=== PATIENT | male | born 1940 | race Caucasian/White ===

== ENCOUNTER 2017-01-30 11:22 | Outpatient (CLI) | payer MEDICARE, OTHER ==
[2017-01-30 19:35] LABS: BASOPHILS % (AUTO) 0.5 %; EOSINOPHILS # (AUTO) 0.1 10^3/uL (0.0-0.7); EOSINOPHILS % (AUTO) 1.3 %; LYMPHOCYTES # (AUTO) 2.6 10^3/uL (1.5-3.5); LYMPHOCYTES % (AUTO) 37.9 %; MEAN CORPUSCULAR HEMOGLOBIN 32.5 pg (27.0-31.0); MEAN CORPUSCULAR HGB CONC 33.3 g/dL (32.0-36.0); MEAN CORPUSCULAR VOLUME 97.7 fL (80.0-94.0); MEAN PLATELET VOLUME 9.8 fL (7.4-11.4); MONOCYTES # (AUTO) 0.5 10^3/uL (0.0-1.0); MONOCYTES % (AUTO) 6.5 %; NEUTROPHILS # (AUTO) 3.7 10^3/uL (1.5-6.6); NEUTROPHILS % (AUTO) 53.8 %; NUCLEATED RED BLOOD CELLS AUTO 0.1 /100WBC; RED CELL DISTRIBUTION WIDTH 13.2 % (12.0-15.0); UNCORRECTED WHITE BLOOD COUNT 6.9 x10^3/uL; WHITE BLOOD COUNT 6.9 x10^3/uL (4.8-10.8)
[2017-01-30 19:38] LABS: ALBUMIN/GLOBULIN RATIO 1.6 (1.0-2.2); BUN - BLOOD UREA NITROGEN 16 mg/dL (6-20); CALCIUM 9.2 mg/dL (8.5-10.3); CARBON DIOXIDE - CO2 28 mmol/L (21-32); CHLORIDE 103 mmol/L (101-111); GFR - MDRD 72 (>89); GLUCOSE 104 mg/dL (70-100); POTASSIUM 4.2 mmol/L (3.5-5.0); SODIUM 137 mmol/L (135-145); TOTAL PROTEIN 7.2 g/dL (6.7-8.2)
== END 2017-01-30 11:23 | disposition home or self-care (01) ==
LOC: LAB.WCP 11:22
PROVIDERS: ATTEND Psychiatry & Neurology Neurology
DX: E55.9 Vitamin D deficiency, unspecified (principal); G20 Parkinson's disease; T88.7XXA Unspecified adverse effect of drug or medicament, initial encounter
CPT/HCPCS: 36415; 80053; 85025

== ENCOUNTER 2017-02-12 13:20 | Outpatient (CLI) | payer MEDICARE, OTHER ==
[2017-02-12 13:29] LABS: CHOL/HDL RATIO 6.8 (<5.0); CHOLESTEROL 217 mg/dL; HDL CHOLESTEROL 32 mg/dL; LDL/HDL RATIO 3.7 (<3.6); TRIGLYCERIDES 338 mg/dL; VLDL CHOLESTEROL 68 mg/dL
== END 2017-02-12 13:21 | disposition home or self-care (01) ==
LOC: LAB.WCP 13:20
PROVIDERS: ATTEND Family Medicine
DX: E78.5 Hyperlipidemia, unspecified (principal); Z12.5 Encounter for screening for malignant neoplasm of prostate
CPT/HCPCS: 36415; 80061; G0103; 84153

== ENCOUNTER 2017-02-15 11:08 | Outpatient (CLI) | payer MEDICARE, OTHER ==
--- NOTE | 2017-02-15 18:01 | Ultrasound Report ---
EXAM: CAROTID DOPPLER ULTRASOUND EXAM DATE: 02/15/2017 12:32 p.m. CLINICAL HISTORY: Carotid artery stenosis, bilateral. COMPARISON: None. TECHNIQUE: Real-time sonographic vascular imaging was performed by the packing room worker through the caroti d arterial system with a linear transducer utilizing color-flow, Doppler flow and spectral analysis. Multiple sales representative public utilities static images were saved for review. FINDINGS: Right: There is mild plaquing in the right carotid bifurcation, without evidence of a focal hemodynam ically significant stenosis. Left: There is moderate calcified plaquing in the left carotid bifurcation, without evidence of a foc al hemodynamically significant stenosis. The vertebral arteries demonstrate antegrade flow bilaterally. RIGHT: RCCA Prox: PSV 85 cm/sec. RCCA Dist: PSV 67 cm/sec, EDV 15 cm/sec. RECA: PSV 100 cm/sec. R Bulb: PSV 47 cm/sec, EDV 11 cm/sec, ICA/CCA ratio 0.73, degree of stenosis <50%, plaque estimate <5 0%. ALEJANDRA Prox: PSV 81 cm/sec, EDV 18 cm/sec, ICA/CCA ratio 1.2, degree of stenosis <50%, plaque estimate <50%. ALEJANDRA Mid: PSV 48 cm/sec, EDV 17 cm/sec, ICA/CCA ratio 0.72, degree of stenosis <50%, plaque estimate <50%. ALEJANDRA Dist: PSV 81 cm/sec, EDV 27 cm/sec, ICA/CCA ratio 1.21, degree of stenosis <50%, plaque estimat e <50%. RVA: PSV 33 cm/sec. LEFT: LCCA Prox: PSV 113 cm/sec. LCCA Dist: PSV 87 cm/sec, EDV 24 cm/sec. LECA: PSV 103 cm/sec. L Bulb: PSV 54 cm/sec, EDV 13 cm/sec, ICA/CCA ratio 0.62, degree of stenosis <50%, plaque estimate <5 0%. LICA Prox: PSV 50 cm/sec, EDV 18 cm/sec, ICA/CCA ratio 0.57, degree of stenosis <50%, plaque estimate <50%. LICA Mid: PSV 127 cm/sec, EDV 44 cm/sec, ICA/CCA ratio 1.46, degree of stenosis <50%, plaque estimate <50%. LICA Dist: PSV 61 cm/sec, EDV 23 cm/sec, ICA/CCA ratio 0.7, degree of stenosis <50%, plaque estimate <50%. LVA: PSV 39 cm/sec. Other: None. IMPRESSION: No hemodynamically significant stenoses. Validated velocity measurements with angiographic measurements and velocity criteria are extrapolated from diameter data as defined by the Society of Radiologists in Ultrasound Consensus Conference Radi ology 2003; 229;340-346. [facility] Referring Provider Line: [phone] SITE ID: [id number]
== END 2017-02-15 11:09 | disposition home or self-care (01) ==
LOC: DI 11:08
PROVIDERS: ATTEND Family Medicine
DX: I65.23 Occlusion and stenosis of bilateral carotid arteries (principal)
CPT/HCPCS: 93880

== ENCOUNTER 2017-10-31 17:26 | Outpatient (CLI) | payer MEDICARE, OTHER ==
[2017-10-31 19:09] LABS: BILIRUBIN,URINE NEGATIVE (NEGATIVE); GLUCOSE, URINE (UA) NEGATIVE (NEGATIVE); KETONES,URINE (UA) NEGATIVE (NEGATIVE); LEUKOCYTE ESTERASE, URINE NEGATIVE (NEGATIVE); NITRITE,URINE NEGATIVE (NEGATIVE); OCCULT BLOOD,URINE TRACE-INTA (NEGATIVE); PROTEIN,URINE NEGATIVE (NEGATIVE); UROBILINOGEN,URINE 0.2 (NORMAL) E.U./dL (NORMAL)
[2017-10-31 19:14] LABS: CLARITY,URINE CLEAR (CLEAR)
[2017-10-31 19:23] LABS: WBC CLUMPS,URINE PRESENT
[2017-10-31 19:24] LABS: BACTERIA,URINE None Seen /HPF (None Seen); MUCUS,URINE Few Strands; RBC,URINE 0-5 /HPF (0-5); SQUAMOUS EPITHELIAL CELL,UR RARE Squamous (<= Few)
== END 2017-10-31 17:27 | disposition home or self-care (01) ==
LOC: LAB.R 17:26
PROVIDERS: ATTEND Physician Assistant
DX: R31.9 Hematuria, unspecified (principal)
CPT/HCPCS: 81001

== ENCOUNTER 2017-11-10 09:50 | Outpatient (CLI) | END 2017-11-10 09:51 | disposition home or self-care (01) | CPT/HCPCS: 36415; 74178; 80048; Q9967 ==

== ENCOUNTER 2021-08-19 09:17 | Emergency (ER) | payer MEDICARE, OTHER ==
--- NOTE | 2021-08-19 10:02 | ED Physician Documentation ---
PD HPI UPPER EXT INJURY - Stated complaint Stated Complaint: SWOLLEN PURPLE LEFT ARM - Chief complaint Chief Complaint: Ext Problem - History obtained from History obtained from: Patient, Family - History of Present Illness Location: Left, Forearm Type of injury: Other (excessive use yesterday grinding tree branches in a shredder) Where injury occurred: Home Timing - onset: Yesterday Timing - duration: Days (1) Timing - details: Gradual onset, Still present Improved by: Rest Worsened by: Moving, Palpating Associated symptoms: Swelling, Discolored. No: Weakness, Numbness Contributing factors: No: Anticoagulated Similar symptoms before: Has not had sx before Recently seen: Not recently seen - Additonal information Additional information: 80-year-old male with a history of Parkinson's and hypertension who has a pacer in place, worked hard in his yard yesterday shredding tree branches with his . This morning he has awakened with swelling to the left forearm and a purplish color to the skin. The muscles are firm and not particularly tender. The patient indicates that he does have a lot of problems with muscle spasms that have been present for years. He is on Aldactone. He does have a tendency to "over do it" with working. He is not otherwise ill. Review of Systems Constitutional: denies: Fever Eyes: denies: Decreased vision Ears: denies: Ear pain Nose: denies: Congestion Throat: denies: Sore throat Respiratory: denies: Cough GI: denies: Vomiting : denies: Dysuria Skin: reports: Other (discolored skin from fingers to elbow). denies: Rash Musculoskeletal: reports: Extremity swelling. denies: Neck pain, Back pain, Extremity pain Neurologic: denies: Generalized weakness, Focal weakness, Numbness PD PAST MEDICAL HISTORY - Past Medical History Past Medical History: Yes Cardiovascular: Hypertension Neuro: Parkinson's - Past Surgical History Past Surgical History: Yes Cardiovascular: Pacemaker HEENT: Cataracts - Present Medications Home Medications: Ambulatory Orders Medication Instructions Recorded Confirmed Aspirin [Aspirin EC] 81 mg PO DAILY 08/19/21 08/19/21 Carbidopa/Levodopa [Carbidopa-Levo 1 tab PO DAILY 08/19/21 08/19/21 ER 25-100 Tab] Metoprolol Succinate [Toprol Xl] 50 mg PO DAILY 08/19/21 08/19/21 Spironolactone [Aldactone] 25 mg PO DAILY 08/19/21 08/19/21 cloNIDine [Catapres] 0.1 mg PO DAILY PRN 08/19/21 08/19/21 - Allergies Allergies/Adverse Reactions: Allergies Allergy/AdvReac Type Severity Reaction Status Date / Time amlodipine Allergy Rash Verified 11/23/14 19:24 doxazosin mesylate * Allergy Hives Verified 11/23/14 19:21 [From Cardura] hydrochlorothiazide Allergy Cramps Verified 08/19/21 09:38 [From Avalide] irbesartan [From Avalide] Allergy Cramps Verified 08/19/21 09:38 hydralazine AdvReac Nausea Verified 11/23/14 19:24 - Social History Does the pt smoke?: No Smoking Status: Never smoker Does the pt drink ETOH?: No Does the pt have substance abuse?: No - Immunizations Immunizations are current?: Yes - POLST Patient has POLST: No PD ED PE NORMAL - Vitals Vital signs reviewed: Yes (hypertensive mild ) - General General: Alert and oriented X 3, No acute distress, Well developed/nourished - HEENT HEENT: Atraumatic, PERRL, EOMI - Neck Neck: Supple, no meningeal sign, No bony TTP - Cardiac Cardiac: RRR, No murmur - Respiratory Respiratory: No respiratory distress, Clear bilaterally - Abdomen Abdomen: Soft, Non tender - Back Back: No CVA TTP, No spinal TTP - Derm Derm: Warm and dry, No rash, Other (There is discoloration of the left forearm to the fingertips. Distal neurovascular is intact the hand is mildly swollen and the brachial radialis is firm but nontender. The color above the elbow is normal.) - Extremities Extremities: Other (As described above discoloration and firmness to the muscle of the left forearm.) - Neuro Neuro: Alert and oriented X 3, emergency technician 2-12 intact, No motor deficit, No sensory deficit, Normal speech Eye Opening: Spontaneous Motor: Obeys Commands Verbal: Oriented GCS Score: 15 - Psych Psych: Normal mood, Normal affect Results - Vitals Vitals: Vital Signs - 24 hr 08/19/21 09:20 Temperature 36.4 C L Heart Rate 60 Respiratory 19 Rate Blood Pressure 164/85 H O2 Saturation 100 Oxygen O2 Source Room air - Labs Labs: Laboratory Tests 08/19/21 08/19/21 08/19/21 10:07 10:07 10:07 WBC 6.3 RBC 4.08 L Hgb 13.2 L Hct 39.3 L MCV 96.3 H MCH 32.4 H MCHC 33.6 RDW 12.5 Plt Count 156 MPV 10.7 Neut # (Auto) 3.9 Lymph # (Auto) 1.8 Hubbard # (Auto) 0.5 Eos # (Auto) 0.1 Baso # (Auto) 0.0 Absolute Nucleated RBC 0.00 Nucleated RBC % 0.0 Sodium 137 Potassium 4.4 Chloride 102 Carbon Dioxide 25 Anion Gap 10.0 BUN 23 H Creatinine 0.9 Estimated GFR (MDRD) 81 L Glucose 107 H Calcium 8.8 Total Bilirubin 1.2 H AST 18 ALT < 10 L Alkaline Phosphatase 40 L Total Creatine Kinase 73 CK-MB (CK-2) 2.3 Total Protein 6.7 Albumin 4.1 Globulin 2.6 Albumin/Globulin Ratio 1.6 Lipase 47 PD MEDICAL DECISION MAKING - ED course Complexity details: reviewed results, re-evaluated patient, considered differential, d/w patient, d/w family ED course: 80-year-old male who tends to overdo it at work spent some time shredding branches yesterday and mowing the lawn. Today he is awakened with the left brachial radialis firm and nontender and the forearm violaceous from the elbow to the fingertips. The hand appeared slightly swollen. My initial concern is for deep vein thrombosis in the upper extremity and a duplex venous exam was performed without findings of deep vein thrombosis. At the time of completion of the ultrasound examination the patient's discoloration does seem improved as does the swelling. It is not completely resolved. The patient is not on a blood thinner and the color does not suggest bruising. The color suggests venous stasis and the suspect is the tightness in the forearm and the symptoms appear to be resolving. There is no elevation in the CPK to be concerned for Rhabdomyolysis . This patient does give history that he had excessive use of his arms without rest yesterday and now has firm muscles consistent with overuse. Expectation is resolution within 5 days. Departure - Departure Disposition: 01 Home, Self Care Clinical Impression: Soft tissue disorder related to use, overuse, and pressure Condition: Stable Instructions: ED Strain Muscle Ext Follow-Up: Alejandro Godinez, [Primary Care Provider] - Comments: Alexx, today it looks like the discoloration you have had to your forearm and hand as well as the swelling is related to overuse of your arm from the work you were doing yesterday. We did not find any evidence of a clot in the venous system. The expectation is resolution of your symptoms within the next 5 days. The muscle to your forearm today is firm consistent with this overuse. This should begin to soften up over the next 2 to 5 days. In the future when you are working be certain to rest any body part that you are using regularly at least every 20 minutes.
--- OUTSIDE RECORDS SUMMARY | 2021-08-19 10:03 | EXTERNAL MEDICAL SUMMARY RPT | Continuity of Care Document ---
:1940 Author Organization [facility] Address [address] [place] [address] Phone Care Team Providers Name Role Phone Scheidt Unavailable Unavailable Allergies No information. Encounters No information. Medications No information. Problems Procedures date description facility [id number] General Physician [facility] [id number] Finding [facility] [id number] Diagnosis [facility] Results No information. Vital Signs date measurement value source 20210813 weight_standard 73.03 lb 20210813 weight_metric 33.12 kg 20210813 temperature_standard 99.3 F [id number] temperature_metric 37.39 C 20210813 respiration_rate 16 /min 20210813 height_standard 65.5 in [id number] height_metric 166.37 cm 20210813 heart_rate 60 /min [id number] BP_systolic 146 mm[Hg] 20210813 BP_diastolic 83 mm[Hg] 20210813 BMI 26.4 kg/m2
[2021-08-19 10:14] LABS: BASOPHILS % (AUTO) 0.5 %; EOSINOPHILS # (AUTO) 0.1 10^3/uL (0.0-0.7); EOSINOPHILS % (AUTO) 1.3 %; HCT - HEMATOCRIT 39.3 % (42.0-52.0); HGB - HEMOGLOBIN 13.2 g/dL (14.0-18.0); LYMPHOCYTES # (AUTO) 1.8 10^3/uL (1.5-3.5); LYMPHOCYTES % (AUTO) 29.2 %; MEAN CORPUSCULAR HEMOGLOBIN 32.4 pg (27.0-31.0); MEAN CORPUSCULAR HGB CONC 33.6 g/dL (32.0-36.0); MEAN CORPUSCULAR VOLUME 96.3 fL (80.0-94.0); MEAN PLATELET VOLUME 10.7 fL (7.4-11.4); MONOCYTES # (AUTO) 0.5 10^3/uL (0.0-1.0); MONOCYTES % (AUTO) 7.3 %; NEUTROPHILS # (AUTO) 3.9 10^3/uL (1.5-6.6); NEUTROPHILS % (AUTO) 61.4 %; PLT - PLATELET COUNT 156 10^3/uL (130-450); RED BLOOD COUNT 4.08 10^6/uL (4.70-6.10); RED CELL DISTRIBUTION WIDTH 12.5 % (12.0-15.0); WHITE BLOOD COUNT 6.3 x10^3/uL (4.8-10.8)
[2021-08-19 10:29] LABS: ALBUMIN 4.1 g/dL (3.2-5.5); ALBUMIN/GLOBULIN RATIO 1.6 (1.0-2.2); ALKALINE PHOSPHATASE 40 IU/L (42-121); ALT ALANINE AMINOTRANSFERASE < 10 IU/L (10-60); AST ASPARTATE AMINOTRANSFERASE 18 IU/L (10-42); BILIRUBIN,TOTAL 1.2 mg/dL (0.2-1.0); BUN - BLOOD UREA NITROGEN 23 mg/dL (6-20); CALCIUM 8.8 mg/dL (8.5-10.3); CARBON DIOXIDE - CO2 25 mmol/L (21-32); CHLORIDE 102 mmol/L (101-111); CK- CREATINE KINASE 73 IU/L (22-269); CREATININE 0.9 mg/dL (0.6-1.2); GFR - MDRD 81 (>89); GLUCOSE 107 mg/dL (70-100); LIPASE 47 U/L (22-51); POTASSIUM 4.4 mmol/L (3.5-5.0); SODIUM 137 mmol/L (135-145); TOTAL PROTEIN 6.7 g/dL (6.7-8.2)
[2021-08-19 11:54] VITALS: BP 150/72
--- NOTE | 2021-08-19 12:23 | Ultrasound Report ---
PROCEDURE: Duplex Ext Veins Left INDICATIONS: L forearm swollen/purple TECHNIQUE: Real-time imaging, as well as color and pulse Doppler interrogation, were performed of the lower extr emity deep veins from the inguinal ligament to the popliteal fossa. COMPARISON: None. FINDINGS: The deep veins are normally compressible, and free of intraluminal thrombus. Color and pu lse Doppler demonstrate normal phasic intraluminal flow. There is normal augmentation response to di stal compression maneuver. IMPRESSION: No evidence of deep venous thrombosis, left upper extremity Reviewed by: Jaylon Zhang MD on 08/19/2021 11:22 AM [place] Approved by: Jaylon Zhang MD on 08/19/2021 11:22 AM LA Station ID: [id number]
== END 2021-08-19 12:10 | disposition home or self-care (01) ==
LOC: ED 09:17
DX: L98.9 Disorder of the skin and subcutaneous tissue, unspecified (principal)
CPT/HCPCS: 36415; 80053; 82550; 82553; 83690; 85025; 99284

== ENCOUNTER 2021-11-15 07:48 | Outpatient (CLI) | payer MEDICARE, OTHER | END 2021-11-15 07:49 | disposition home or self-care (01) | LOC: LAB.N 07:48 | PROVIDERS: ATTEND Physician Assistant | DX: Z53.9 Procedure and treatment not carried out, unspecified reason (principal) | CPT/HCPCS: 36415; 80053; 80061; 83036; 83721; 84443; 85025 ==

== ENCOUNTER 2021-11-15 08:50 | Outpatient (CLI) | payer MEDICARE, OTHER ==
[2021-11-15 09:20] LABS: BASOPHILS % (AUTO) 0.4 %; EOSINOPHILS # (AUTO) 0.1 10^3/uL (0.0-0.7); EOSINOPHILS % (AUTO) 0.9 %; HCT - HEMATOCRIT 44.5 % (42.0-52.0); HGB - HEMOGLOBIN 14.7 g/dL (14.0-18.0); LYMPHOCYTES # (AUTO) 2.2 10^3/uL (1.5-3.5); MEAN CORPUSCULAR VOLUME 96.7 fL (80.0-94.0); MEAN PLATELET VOLUME 10.8 fL (7.4-11.4); MONOCYTES # (AUTO) 0.6 10^3/uL (0.0-1.0); MONOCYTES % (AUTO) 7.5 %; NEUTROPHILS # (AUTO) 4.7 10^3/uL (1.5-6.6); NEUTROPHILS % (AUTO) 61.8 %; PLT - PLATELET COUNT 161 10^3/uL (130-450); RED CELL DISTRIBUTION WIDTH 12.4 % (12.0-15.0); WHITE BLOOD COUNT 7.6 x10^3/uL (4.8-10.8)
--- NOTE | 2021-11-15 09:29 | XRAY Report ---
PROCEDURE: Shoulder 3 View RT INDICATIONS: PAIN IN RIGHT SHOULDER TECHNIQUE: Views of the right shoulder were acquired. COMPARISON: None. FINDINGS: Bones: No fractures or dislocations. There is a well-corticated ossicle inferior to the humeral head . The glenohumeral joint has degenerative changes with joint space narrowing, joint surface irregular ity, osteophytes, and subchondral sclerosis. Joint space narrowing of the acromioclavicular joint Soft tissues: No suspicious soft tissue calcifications. IMPRESSION: Degenerative changes of the right glenohumeral joint and acromioclavicular joint consist ent with osteoarthritis. Reviewed by: Benny Segal on 11/15/2021 9:28 AM PDT Approved by: Benny Segal on 11/15/2021 9:28 AM PDT Station ID: [id number]
[2021-11-15 09:49] LABS: THYROID STIMULATING HORMONE 4.8 uIU/mL (0.34-5.60)
[2021-11-15 10:10] LABS: ALBUMIN 4.6 g/dL (3.2-5.5); ALBUMIN/GLOBULIN RATIO 1.4 (1.0-2.2); ALKALINE PHOSPHATASE 51 IU/L (42-121); ALT ALANINE AMINOTRANSFERASE < 10 IU/L (10-60); AST ASPARTATE AMINOTRANSFERASE 21 IU/L (10-42); BILIRUBIN,TOTAL 0.5 mg/dL (0.2-1.0); BUN - BLOOD UREA NITROGEN 28 mg/dL (6-20); CALCIUM 9.7 mg/dL (8.5-10.3); CARBON DIOXIDE - CO2 28 mmol/L (21-32); CHLORIDE 101 mmol/L (101-111); CHOL/HDL RATIO 5.2 (<5.0); CHOLESTEROL 214 mg/dL; CREATININE 1.1 mg/dL (0.6-1.2); GFR - MDRD 64 (>89); GLUCOSE 120 mg/dL (70-100); HDL CHOLESTEROL 41 mg/dL; LDL CHOLESTEROL,CALCULATED 156 mg/dL; LDL/HDL RATIO 3.8 (<3.6); POTASSIUM 5.1 mmol/L (3.5-5.0); SODIUM 140 mmol/L (135-145); TOTAL PROTEIN 7.9 g/dL (6.7-8.2); TRIGLYCERIDES 85 mg/dL; VLDL CHOLESTEROL 17 mg/dL
[2021-11-15 10:27] LABS: ESTIMATED AVERAGE GLUCOSE 117 mg/dL (70-100); HEMOGLOBIN A1c% 5.7 % (4.27-6.07)
== END 2021-11-15 08:51 | disposition home or self-care (01) ==
LOC: DI 08:50
PROVIDERS: ATTEND Physician Assistant
DX: M19.011 Primary osteoarthritis, right shoulder (principal); Z51.81 Encounter for therapeutic drug level monitoring; E78.5 Hyperlipidemia, unspecified; R73.9 Hyperglycemia, unspecified
CPT/HCPCS: 36415; 80053; 80061; 83036; 83721; 84443; 85025

== ENCOUNTER 2022-08-14 09:42 | Outpatient (CLI) | payer MEDICARE, OTHER ==
[2022-08-14 10:31] VITALS: BP 128/80
--- NOTE | 2022-08-14 10:31 | SLEEP CARE CONSULTATION ---
Information from patient questionnaire entered by Samaria Dykes. I have reviewed and concur with the information entered by Samaria Dykes. This document represents the service I personally performed and the decisions made by me, Fela Norwood ARNP. History of Present Illness Service Date and Time: 08/14/2022 0942 Reason for Visit: New patient, sleep apnea on CPAP therapy Chief Complaint: reports: Snoring, Observed pauses in breathing Date of Onset: 20YRS Snores at night: Yes Observed to quit breathing while asleep: No Sleeps alone due to snoring: Yes Number of times waking at night: 1 Reasons for waking at night: reports: Other (UNKNOWN) Recalls having dreams: Yes Usually gets out of bed at: 7AM Feels refreshed in the morning: Yes Morning headache: No Sleepy or fatigued during the day: No Ever fallen asleep while driving: No Takes day naps: No Prior sleep studies: Yes Year and Where: [facility] 10 to 15 yrs ago Additional HPI information: JUANCHO DAVE was previously diagnosed to have unknown, AHI unknown, sleep apnea-hypopnea syndrome and comes in today to establish care for CPAP therapy. - Parasomnia Symptoms Ever been unable to move upon waking from sleep: No Walks in sleep: No Talks in sleep: Yes Ever acted out dreams in sleep: Yes Ever felt weak in the knees when startled or emotional: No Bothered by creepy, crawly, restless sensations in legs: No Problems with memory or concentration: Yes CPAP Compliance Data - Data Reviewed with Patient Average duration of nightly device use: 7 hours 24 minutes Compliance rate %: 93 (90/90 days used) Current pressure setting (cmH2O): 8-18 Average residual AHI: 1.0 Central apnea: 0.1 Obstructive apnea: 0.1 Hypopnea: 0.8 Average large leak: 2.9 L/min Compliance data discussion: He is getting supplies from [employer] [facility] [employer] for his CPAP. He is using a Resmed Airsense 10 s/u on 05/2020. He is using a Resmed Quattro FX full face mask. He does have a back up mask. Subjective Patient concerns: denies: aerophagia, mask discomfort, air blowing in eyes, mask leak noise, condensation in mask/hose, nasal congestion, dry mouth, nose, throat, epistaxis Observed to snore while using device: No Current pressure setting perceived as: comfortable On therapy, patient: reports: sleeping better, awakening more refreshed, being more awake and alert during the day, more rested overall, other (has been using for a long time, hard to notice difference). denies: drowsiness while driving Initial [place] Sleepiness Scale score: 3 (07/22/22) Past Medical History Past Medical History: reports: Hypertension, Arthritis, Other (PACE MAKER, PARKINSONS, KIDNEY STONES; Glaucoma) Social History The patient's occupation is a RE. Patient is and lives in [place]. Have you smoked in the past 12 months: No Years of smokin Quit date: 1969 Alcohol use: No Caffeine use: Yes Caffeine amount and frequency: 3CUPS DAILY Family History Family history of sleep disordered breathing: No Allergies and Home Medications Known drug allergies: Yes (as listed) Drug allergies reviewed: Yes Home medication list reviewed: Yes (as updated in EMR) Allergy and home medication list: Allergies amlodipine Allergy (Verified 08/13/22 16:15) Rash doxazosin mesylate * [From Cardura] Allergy (Verified 08/13/22 16:15) Hives hydrochlorothiazide [From Avalide] Allergy (Verified 08/13/22 16:15) Cramps irbesartan [From Avalide] Allergy (Verified 08/13/22 16:15) Cramps hydralazine Adverse Reaction (Verified 08/13/22 16:15) Nausea Review of Systems Weight loss over past 5 years: 20 Cardiovascular: reports: high blood pressure, irregular heart rate or pulse Gastrointestinal: denies: heartburn Neurological: reports: gait or balance problems. denies: headaches Psychiatric: denies: anxiety, depression Ear/Nose/Throat: reports: sinus problems, injury to nose. denies: tonsillectomy Musculoskeletal: reports: joint pain, neck pain, back pain, muscle pain or cramping Immunologic: reports: sneezing Physical Exam Vital signs obtained and entered by: SAMARIA Sauceda MA Blood Pressure: 128/80 (LEFT ARM) Cuff size: regular Heart Rate: 60 O2 Saturation: 97 Height: 5 ft 4.25 in Weight: 160 lb 9.6 oz Body Mass Index: 27.3 BMI Classification: Overweight Neck circumference: 17.5 Heart: regular rate and rhythm Lungs: clear bilaterally Impression and Plan 1. Obstructive Sleep Apnea-Hypopnea Syndrome, unknown, with good treatment compliance and good apnea control. On CPAP therapy, the patient has better sleep quality and is more rested overall. We will obtain a copy of his last sleep study from [facility]. If we are unable to get a sleep study, patient will be asked to do a sleep study to verify diagnosis and severity. He voiced understanding. Patient has significant improvement of their sleep apnea and is satisfied with current CPAP therapy. Patient denies problems with oral dryness, nasal congestion, epistaxis, skin irritation or aerophagia. Patient's apnea severity and rationale for treatment to reduce apnea, improve sleep quality and reduce cardiovascular and cerebrovascular events was reviewed. I also reviewed the benefit of consistent device use of CPAP for hypertension and cardiac disease. 2. Overweight, unspecified. Currently patients BMI is 27.3. Obesity increases the risk of apnea, CPAP pressure requirements and overall health risks especially cardiovascular and diabetes. Thus patient is advised to lose weight. * Continue auto CPAP pressure at 8-18 cmH2O * Obtain copy of last sleep study * Update supplies * Notify me if snoring with mask or feeling that the pressure is too much or too little * Attempt to lose weight * Call this office if any problems using CPAP * Return for follow up in 1 year, or sooner if concerns arise Counseling Topics: Spare mask, Weight loss health impact Visit Type: In Office Time Spent with Patient (minutes): 32 Provider Statement: I spent 100% of the Face to Face Visit with the patient with greater than 50% spent counseling the patient and coordination of care.
== END 2022-08-14 09:43 | disposition home or self-care (01) ==
LOC: SC 09:42
PROVIDERS: ATTEND Nurse Practitioner Family
DX: G47.33 Obstructive sleep apnea (adult) (pediatric) (principal); E66.3 Overweight; Z68.27 Body mass index [BMI] 27.0-27.9, adult; Z87.891 Personal history of nicotine dependence
CPT/HCPCS: 99203; G0463; 99212

== ENCOUNTER 2023-07-08 09:46 | Outpatient (CLI) | payer MEDICARE, OTHER ==
--- NOTE | 2023-07-08 12:43 | XRAY Report ---
PROCEDURE: Abdomen 1 V INDICATIONS: NEPHROLITHIASIS TECHNIQUE: One view of the abdomen acquired. COMPARISON: None. FINDINGS: Partially visualized cardiac electrode leads. Overall nonspecific, nonobstructive bowel gas pattern. Pelvic calcifications likely representing phle boliths. Moderate fecal loading is present. Projecting over the left renal fossa, there is a suspected calculus measuring 7 mm. Partially visualized lung bases are unremarkable. There are degenerative osseous changes. IMPRESSION: Suspected 7 mm left renal calculus. Pelvic calcifications are nonspecific, most commonly phleboliths. Reviewed by: Brandon Hurtado MD on 07/08/2023 12:41 PM PST Approved by: Brandon Hurtado MD on 07/08/2023 12:41 PM PST Station ID: [id number]
== END 2023-07-08 09:47 | disposition home or self-care (01) ==
LOC: DI 09:46
PROVIDERS: ATTEND Physician Assistant Medical
DX: N20.0 Calculus of kidney (principal)

== ENCOUNTER 2023-08-29 09:40 | Outpatient (CLI) | payer MEDICARE, OTHER ==
--- NOTE | 2023-08-29 10:18 | Sleep Patient Instructions ---
Sleep Center Visit Summary - Patient Visit Information Reason for Visit: Annual follow-up - Patient Instructions Additional Instructions: You will continue with CPAP therapy with pressure set at 8-18 cmH2O. A supply prescription will be updated with your DME. We encourage you to continue to try to lose weight. Please follow up with the sleep care office in 1 year. - Clinic Information Contact: [facility] [address] [place] [address] [email or web address] T: [phone]
--- NOTE | 2023-08-29 10:20 | SLEEP CARE CONSULTATION ---
Information from patient questionnaire entered by Anita Dykes. I have reviewed and concur with the information entered by Anita Dykes. This document represents the service I personally performed and the decisions made by , Fela Norwood ARNP. History of Present Illness Service Date and Time: 08/29/2023 0940 Previous diagnosis: Severe, Obstructive Sleep Apnea-Hypopnea Syndrome AHI: 46.4 (08/12/2014) Reason for follow up: annual (LAST SEEN 07/2022) Equipment type: CPAP (RESMED Airsense 10, 06/05/2020) Equipment obtained from: [employer] ([employer]) Mask style: Full face Mask brand: Resmed (Quattro FX) Backup mask available: Yes Last cushion change: 2 weeks ago Prior sleep studies: Yes Year and Where: [facility] 10 to 15 yrs ago HPI additional information: JUANCHO DAVE was diagnosed to have severe, AHI 46.4, obstructive sleep apnea- hypopnea syndrome and returned today for CPAP therapy annual follow-up. Sleep Study - Results Prior sleep studies: Yes Year and Where: [facility] 10 to 15 yrs ago CPAP Compliance Data - Data Reviewed with Patient Average duration of nightly device use: 7 hours 4 minutes Compliance rate %: 88 (356/365 days used) Current pressure setting (cmH2O): 8-18 Average residual AHI: 0.8 Central apnea: 0 Obstructive apnea: 0.1 Hypopnea: 0.6 Average large leak: 3.9 Subjective Missed days of use due to: reports: illness Patient concerns: reports: air blowing in eyes, mask leak noise. denies: aerophagia, mask discomfort, condensation in mask/hose, nasal congestion, dry mouth, nose, throat, epistaxis Observed to snore while using device: No Current pressure setting perceived as: comfortable On therapy, patient: reports: sleeping better, awakening more refreshed, being more awake and alert during the day, more rested overall. denies: drowsiness while driving Initial [place] Sleepiness Scale score: 3 (07/22/22) Current [place] Sleepiness Scale score: 2 Allergies and Home Medications Known drug allergies: Yes (as listed) Drug allergies reviewed: Yes Home medication list reviewed: Yes (fish oil added) Allergy and home medication list: Allergies amlodipine Allergy (Verified 08/28/23 11:44) Rash doxazosin mesylate * [From Cardura] Allergy (Verified 08/28/23 11:44) Hives hydrochlorothiazide [From Avalide] Allergy (Verified 08/28/23 11:44) Cramps irbesartan [From Avalide] Allergy (Verified 08/28/23 11:44) Cramps hydralazine Adverse Reaction (Verified 08/28/23 11:44) Nausea Home Medications Medication Instructions Recorded Confirmed Last Taken Type Aspirin [Aspirin EC] 81 mg PO DAILY 08/19/21 08/14/22 Unknown History Carbidopa/Levodopa [Carbidopa-Levo 1 tab PO DAILY 08/19/21 08/14/22 Unknown History ER 25-100 Tab] Metoprolol Succinate [Toprol Xl] 50 mg PO DAILY 08/19/21 08/14/22 Unknown History cloNIDine [Catapres] 0.1 mg PO DAILY PRN 08/19/21 08/14/22 Unknown History Cholecalciferol (Vitamin D3) See Rx Instructions .ROUTE .COMPLEX 08/14/22 08/14/22 Unknown History [Vitamin D3] Ubidecarenone [Coenzyme Q10] See Rx Instructions .ROUTE .COMPLEX 08/14/22 08/14/22 Unknown History Fish Oil 1,000 mg Softgel See Rx Instructions .ROUTE .COMPLEX 08/29/23 08/29/23 Unknown History Magnesium See Rx Instructions .ROUTE .COMPLEX 08/29/23 08/29/23 Unknown History Probiotic Acidophilus See Rx Instructions .ROUTE .COMPLEX 08/29/23 08/29/23 Unknown History Spironolactone See Rx Instructions .ROUTE .COMPLEX 08/29/23 08/29/23 Unknown History Review of Systems Review of systems same as previous: Yes (no changes) Physical Exam Vital signs obtained and entered by: FELA PEREA Blood Pressure: 152/74 Cuff size: regular (right arm) Heart Rate: 60 O2 Saturation: 98 Height: 5 ft 4.25 in Weight: 155 lb 6.4 oz Weight change since last visit: 5 lb loss Body Mass Index: 26.4 BMI Classification: Overweight Impression and Plan 1. Obstructive Sleep Apnea-Hypopnea Syndrome, severe, with good treatment compliance and good apnea control. On CPAP therapy, the patient has better sleep quality and is more rested overall. Patient has significant improvement of their sleep apnea and is satisfied with current CPAP therapy. Patient denies problems with oral dryness, nasal congestion, epistaxis, skin irritation or aerophagia. Patient's apnea severity and rationale for treatment to reduce apnea, improve sleep quality and reduce cardiovascular and cerebrovascular events was reviewed. I also reviewed the benefit of consistent device use of CPAP for hypertension, cardiac disease. 2. Overweight, unspecified. Currently patients BMI is 26.4. Obesity increases the risk of apnea, CPAP pressure requirements and overall health risks especially cardiovascular and diabetes. Thus patient is advised to maintain a healthy weight. * Continue auto CPAP pressure at 8-18 cmH2O * Update supply prescription * Notify me if snoring with mask or feeling that the pressure is too much or too little * Maintain a healthy weight * Call this office if any problems using CPAP * Return for follow up in 12 months, or sooner if concerns arise Counseling Topics: Spare mask, Weight control Prescriptions: Device supplies Follow up with Sleep Care in: 1 year Visit Type: In Office Time Spent with Patient (minutes): 20 Provider Statement: I spent 100% of the Face to Face Visit with the patient with greater than 50% spent counseling the patient and coordination of care.
[2023-08-29 10:21] VITALS: BP 152/74; O2SAT 98
== END 2023-08-29 09:41 | disposition home or self-care (01) ==
LOC: SC 09:40
PROVIDERS: ATTEND Nurse Practitioner Family
DX: G47.33 Obstructive sleep apnea (adult) (pediatric) (principal); E66.3 Overweight
CPT/HCPCS: 99213; G0463; 99212